=== PATIENT | female | born 1965 | race Caucasian/White ===

== ENCOUNTER 2018-07-31 16:39 | Emergency (ER) | payer MEDICARE ==
[~2018-07-31] VITALS: Ht 157.5 cm; Wt 65.7 kg
[2018-07-31 16:42] VITALS: BP 181/78
[2018-07-31] MEDS ORDERED: ALBUTEROL/IPRATROPIUM 2.5MG/0.5MG, 3 ML ONE (17:34)
[2018-07-31] MEDS ORDERED: LORazepam 1MG TABLET ONE (18:23)
[2018-07-31] MEDS ORDERED: LORazepam 1MG TABLET PO ONE (18:30)
== END 2018-07-31 19:11 | disposition home or self-care (01) ==
LOC: ED 16:58
DX: F32.9 Major depressive disorder, single episode, unspecified (principal); F32.1 Major depressive disorder, single episode, moderate
CPT/HCPCS: 99284

== ENCOUNTER 2019-12-06 23:05 | Emergency (ER) | payer SELFPAY ==
[~2019-12-06] VITALS: Ht 157.5 cm; Wt 68.0 kg
[2019-12-06] MEDS ORDERED: ABILIFY (23:29)
[2019-12-06] MEDS ORDERED: EFFEXOR (23:29)
--- NOTE | 2019-12-06 23:29 | NUR ---
1 BAG BELONGINGS PLACED IN ED LOCKER. ROOM SECURE. PT IN DIRECT SIGHT OF SITTER.
--- NOTE | 2019-12-06 23:47 | NUR ---
PT AMBULATED TO RESTROOM WITH STEADY GAIT TO PROVIDE URINE SAMPLE. UA COLLECTED AND TAKEN TO LAB.
[2019-12-06] MEDS ORDERED: LORazepam 1MG TABLET ONE (23:48)
[2019-12-06 23:49] LABS: BASOPHILS # (AUTO) 0.06 x10^3/uL (0-0.1); BASOPHILS % (AUTO) 1 % (0-1); EOSINOPHILS # (AUTO) 0.67 x10^3/uL (0-0.4); EOSINOPHILS % (AUTO) 6 % (1-7); LYMPHOCYTES # (AUTO) 2.99 x10^3/uL (1-3.4); LYMPHOCYTES % (AUTO) 28 % (22-44); MD NO; MEAN CORPUSCULAR HGB CONC 33.2 g/dL (32.4-35.8); MEAN CORPUSCULAR VOLUME 90.3 fL (80-100); MEAN PLATELET VOLUME 7.5 fL (7.4-10.4); MONOCYTES # (AUTO) 0.61 x10^3/uL (0.2-0.8); MONOCYTES % (AUTO) 6 % (2-9); NEUTROPHILS # (AUTO) 6.37 x10^3/uL (1.8-6.8); NEUTROPHILS % (AUTO) 60 % (42-75); PLATELET COUNT 388 x10^3/uL (130-400); RED BLOOD COUNT 4.71 x10^6/uL (3.82-5.3); RED CELL DISTRIBUTION WIDTH 14.9 % (9.6-15.2)
--- NOTE | 2019-12-06 23:51 | NUR ---
MEDS ADMIN PER JAN.
[2019-12-07] MEDS ORDERED: LORazepam 1MG TABLET PO ONE
[2019-12-07 00:01] LABS: ALBUMIN 3.9 g/dL (3.4-5.0); ANION GAP 6 mmol/L (5-15); CHLORIDE 106 mmol/L (98-107); CREATININE 1.07 mg/dL (0.55-1.02)
[2019-12-07 00:02] LABS: SALICYLATE LEVEL < 1.7 mg/dL (2.8-20.0)
[2019-12-07 00:07] LABS: AMPHETAMINE SCREEN, URINE Negative (Negative); BARBITURATE SCREEN, URINE Negative (Negative); BENZODIAZEPINE SCREEN, URINE Negative (Negative); CANNABINOID SCREEN, URINE Positive (Negative); COCAINE SCREEN, URINE Negative (Negative); METHADONE SCREEN, URINE Negative (Negative)
--- NOTE | 2019-12-07 00:11 | NUR ---
Assumed care from FLORENTINO Lopez Pt alert and resting on gurney. Sitter remains in view of pt.
[2019-12-07 00:14] LABS: OPIATE SCREEN, URINE Negative (Negative)
--- NOTE | 2019-12-07 00:21 | NUR ---
THROUGHPUT RN: WALT PAGED PER MADAN MARK AND DR. MARTINEZ AT THIS TIME
--- NOTE | 2019-12-07 00:54 | NUR ---
Pt alert and resting on gurney. More blankets provided. Pt aware of plan for telepsych consult and is agreeable.
--- NOTE | 2019-12-07 01:45 | NUR ---
Pt reporting headache. Lights dimmed. Icepack provider. Will inform MD/PA.
[2019-12-07] MEDS ORDERED: IBUPROFEN 600 MG TABLET ONE (01:49)
--- NOTE | 2019-12-07 01:57 | NUR ---
Motrin and snack given. Pt very cooperative and pleasant. Sitter remains in view of pt.
[2019-12-07] MEDS ORDERED: IBUPROFEN 200 MG TABLET PO ONE (02:00)
--- NOTE | 2019-12-07 02:13 | NUR ---
Pt talking to telepsych MD
[2019-12-07 03:04] VITALS: BP 120/80
--- NOTE | 2019-12-07 03:05 | NUR ---
Pt alert and resting on gurney. VS retaken. Pt reports improvement in headache.
--- NOTE | 2019-12-07 03:39 | NUR ---
Pt d/c'd to self care. Pt alert and oriented. NAD. Pt educated on proper follow-up and S/SX to return. Pt VU. Pt given back her belongings. Pt ambulated out of ER.
== END 2019-12-07 03:42 | disposition home or self-care (01) ==
LOC: ED 12-07 01:49
DX: F41.1 Generalized anxiety disorder (principal); Z72.9 Problem related to lifestyle, unspecified; R45.851 Suicidal ideations
CPT/HCPCS: 36415; 80048; 80307; 82040; 85025; 99283